=== PATIENT | female | born 1970 | race Caucasian/White ===

== ENCOUNTER → 2017-04-27 | Day surgery (SDC) | payer BC ==
[2017-04-26 12:41] VITALS: BMI 39.3
[2017-04-27 07:20] VITALS: RESP 16
[2017-04-27 08:50] VITALS: BP 118/80; PULSE 73; TEMP 98.3
--- NOTE | 2017-04-27 09:16 | USB ---
EXAMINATION TYPE: US biopsy breast VAD RT, MG diagnostic mammo RT wo CAD DATE OF EXAM: 04/27/2017 CLINICAL HISTORY: R92.8 abnormal Mammo. TECHNIQUE: Ultrasound guided core biopsy of right 11:00 breast. COMPARISON: Outside ultrasound 04/19/2017 and outside mammography 04/19/2017 FINDINGS: The procedure of ultrasound guided core biopsy was explained to the patient. Benefits, alternatives, and risks were discussed. An informed consent was then obtained. The patient was placed in supine positioning for imaging and for the procedure. The overlying skin was prepped and draped in usual sterile fashion. Lidocainewas used as anesthetic into the skin and subcutaneous tissue up to area of concern in the right 11 breast. A nai was made with surgical scalpel. Under ultrasound guidance, a 12-gauge vacuum assisted biopsy gun device was used to obtain 4 core samples. Following this, a biopsy clip was left in lesion. Postprocedural mammogram demonstrates appropriate clip placement. The patient tolerated the procedure well without any immediate complication. The patient was kept in the radiology department for short stay after the procedure and then discharged home in stable condition. IMPRESSION: Successful, uncomplicated ultrasound guided core biopsy of area of concern in the right 11:00 breast, full pathology results to follow. Six-month follow-up mammography and ultrasound right breast advised. 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 Recommendation Follow up ultrasound of the right breast in 6 months. ZAIDD
== END ==
LOC: RADUSWWP 04-26 10:25
PROVIDERS: ATTEND Surgery
DX: D24.1 Benign neoplasm of right breast (principal); R92.8 Other abnormal and inconclusive findings on diagnostic imaging of breast
CPT/HCPCS: 19083; G0206; A4648; J2001; 88305

== ENCOUNTER → 2018-08-23 | Outpatient (CLI) | payer BC ==
--- NOTE | 2018-08-24 10:11 | MM ---
Reason for exam: screening (asymptomatic). Last mammogram was performed 1 year and 4 months ago. History: Benign US biopsy breast VAD RT of the right breast, April 27, 2017. Physical Findings: A clinical breast exam by your physician is recommended on an annual basis and results should be correlated with mammographic findings. MG Screening Mammo w CAD Bilateral CC and MLO view(s) were taken. Prior study comparison: April 27, 2017, right breast MG diagnostic mammo RT wo CAD. March 29, 2017, mammogram. The breast tissue is heterogeneously dense. This may lower the sensitivity of mammography. There is no discrete abnormality. No significant changes when compared with prior studies. ASSESSMENT: Negative, BI-RAD 1 RECOMMENDATION: Routine screening mammogram of both breasts in 1 year.
== END | disposition home or self-care (01) ==
LOC: RADMAMWWP 13:08
PROVIDERS: ATTEND Family Medicine
DX: Z12.31 Encounter for screening mammogram for malignant neoplasm of breast (principal)
CPT/HCPCS: 77067